=== PATIENT | male | born 1985 ===

== ENCOUNTER 2023-12-13 13:49 | Outpatient (REF) | payer OTHER, SELFPAY | END 2023-12-13 13:50 | disposition home or self-care (01) | LOC: HO.SH 13:49 | PROVIDERS: Visit Provider Nurse Practitioner Family | DX: Z01.118 Encounter for examination of ears and hearing with other abnormal findings (principal); H69.93 Unspecified Eustachian tube disorder, bilateral | CPT/HCPCS: 92557; 92567 ==